=== PATIENT | female | born 1935 | race Caucasian/White ===

== ENCOUNTER 2016-11-24 20:37 | Emergency (ER) | payer MEDICARE ==
[~2016-11-24] VITALS: Ht 165.1 cm; Wt 95.2 kg
[~2016-11-24 20:37] MED LIST: ALBUTEROL20 ml INH; AMIODARONE HCL100 MG PO; AMIODARONE HCL400 MG PO; AMLODIPINE BESYL5 MG PO; BACTRIM DS TABL1 TA1 PO; BLADDER PILL; BP MED; CERTAGEN PO; CHOLESTEROL MED; ELIQUIS5 MG PO; GLUCOPHAGE500 MG PO; HYDROCODONE-GU480 ML PO; KIDNEY MED; LASIX20 MG PO; LEVAQUIN PO; LEVOXYL0.137 MG PO; LIPITOR PO; LIPITOR20 MG PO; LOPRESSOR PO; LOSARTAN POTASS25 MG PO; METFORMIN HCL500 M1 PO; PERCOCET 5-3251 TAB PO; PREDNISONE PO; PROMETHAZINE D118 ML PO; PYRIDIUM PO; SULAR17 MG PO; SYNTHROID PO; SYNTHROID125 PO; SYNTHROID137 MCG PO; TOFRANIL25 MG PO; TOPROL XL 50 MG50 MG PO; ZITHROMAX1 G/PKT PO; ZOFRAN ODT4 MG PO
== END 2016-11-24 21:53 | disposition home or self-care (01) ==
LOC: SED 20:37
DX: M54.5 Low back pain (principal); G89.29 Other chronic pain; I10 Essential (primary) hypertension; Z90.49 Acquired absence of other specified parts of digestive tract; Z88.5 Allergy status to narcotic agent; Z79.899 Other long term (current) drug therapy
CPT/HCPCS: 99283